=== PATIENT | male | born 1940 | race Caucasian/White ===

== ENCOUNTER 2018-12-01 19:54 | Inpatient (IN) | payer MEDICARE, OTHER ==
[~2018-12-01] VITALS: Ht 165.1 cm; Wt 67.1 kg
[~2018-12-01 19:54] MED LIST: LISI10TA6 PO; METF-371 PO; SIMV-8 PO
[2018-12-01] MEDS ORDERED: SODIUM CHLORIDE 0.9% 500 ML IVB ONE (20:14)
[2018-12-01 21:23] LABS: Eosinophils # (auto) 0.2 uL; Monocytes # (auto) 0.9 uL; Neutrophils # (auto) 5.5 uL; White Blood Cell 8.5 10^3/uL (4.4-10.8)
[2018-12-01 21:25] LABS: Basophils # (auto) 0 uL; Basophils % (auto) 0.3 % (0.0-2.0); Eosinophils % (auto) 2.6 % (0.0-7.0); Hematocrit 32.5 % (41.0-53.0); Lymphocytes # (auto) 1.9 uL; Lymphocytes % (auto) 22.1 % (10.0-50.0); Mean Corpuscular Hemoglobin 34.3 pg (28.0-32.0); Mean Corpuscular Volume 100.8 fL (80.0-100.0); Monocytes % (auto) 10.8 % (0.0-12.0); Neutrophils % (auto) 64.2 % (37.0-80.0); Platelet Count (auto) 160 10^3/uL (140-450); Red Blood Cells 3.22 10^6/uL (4.5-5.90); Red Cell Distribution Width 13.1 % (11.8-14.3)
[2018-12-01 21:34] LABS: Alanine Aminotransferase 25 U/L (16-61); Albumin 3.4 g/dL (3.4-5.0); Anion Gap 10 (5-15); Aspartate Aminotransferase 14 U/L (15-37); BUN/Creatinine Ratio 17.3; Blood Alcohol < 3.0 mg/dL (0-5); Blood Urea Nitrogen 47 mg/dL (7-18); Calcium 7.5 mg/dL (8.5-10.1); Carbon Dioxide 19 mmol/L (21-32); Chloride 115 mmol/L (98-107); GFR African American 29 mL/min; GFR Non-African American 24 mL/min; Glucose 113 mg/dL (74-106); Partial Thromboplastin Time 23.7 sec (23.64-32.05); Sodium 144 mmol/L (136-145)
[2018-12-01 21:39] LABS: Alkaline Phosphatase 42 U/L (45-117); Bilirubin, Total 0.4 mg/dL (0.2-1.0); Total Protein 6.4 g/dL (6.4-8.2)
[2018-12-01] MEDS ORDERED: NEOMYCIN-BACITRACIN-POLYM 15GM TOP OINT TOP STA (23:40)
[2018-12-01] MEDS ORDERED: TETANUS-DIPTH-ACEL PERTUSSIS 0.5ML SYRG IM ONE (23:45)
[2018-12-01] MEDS ORDERED: NEOMYCIN-BACITRACIN-POLYM UNITDOSE PKG TOP OINT TOP ONE (23:57)
[2018-12-02] MEDS ORDERED: NITROGLYCERIN 0.4 MG SL TAB SL PRN (00:45)
[2018-12-02] MEDS ORDERED: DEXTROSE (50%) 50ML SYRG IV PRN (00:45)
[2018-12-02] MEDS ORDERED: ONDANSETRON HCL 4 MG/2 ML VIAL IV PRN (00:45)
[2018-12-02] MEDS ORDERED: TEMAZEPAM 15 MG CAP PO PRN (00:45)
[2018-12-02] MEDS ORDERED: MORPHINE SULF INJ 2 MG/ML SYRINGE 1ML IV PRN (00:45)
[2018-12-02] MEDS ORDERED: ACETAMINOPHEN 325 MG TAB PO PRN (00:45)
[2018-12-02] MEDS: ACCU-CHEK COMFORT CURVE STRIP VI SCH ×4 (06:00→21:51)
[2018-12-02] MEDS: InsuLIN REG 1unit/0.01ml Soln (100units/ml) SC SCH ×4 (06:00→21:51)
[2018-12-02] MEDS: PANTOPRAZOLE 40 MG TAB PO SCH (10:18)
[2018-12-02 10:41] LABS: Urine Bacteria FEW /hpf (None Seen); Urine Blood Negative /uL (Negative); Urine Hyaline Cast MANY /lpf (0 - 2); Urine Mucus FEW (None Seen); Urine Specific Gravity 1.013 (1.001-1.035); Urine WBC 1 /hpf (0 - 3)
[2018-12-02] MEDS ORDERED: LORazepam 0.5 MG TAB PO PRN (13:15)
--- NOTE | 2018-12-02 14:33 | NUR ---
Telemetry admit from ER ANGELROBERT admitted to Telemetry unit after SBAR received. Patient oriented to ELBA Shelley RN, unit, room, bed, and unit policies regarding patient care and visiting hours. Patient now on continuous telemetry monitoring, tele box # 16 and telemetry reading on arrival to unit is Sinus Rhythm, [id number]. Patient placed on room air, weighed by bed scale and encouraged to call if they need something. All questions and concerns addressed, patient verbalized understanding.
[2018-12-02 14:45] VITALS: BP 111/64
[2018-12-02] MEDS ORDERED: LORA-655 PO (15:37)
[2018-12-02 17:00] VITALS: BP 111/64
--- NOTE | 2018-12-02 17:20 | NUR ---
Tele unit exchanged by [facility] staff to Tele 20.
--- NOTE | 2018-12-02 19:32 | NUR ---
received pt from day rn poc reviewed
[2018-12-02] MEDS: ATORVASTATIN 20 MG TAB PO SCH (21:46)
[2018-12-02 21:50] VITALS: BP 114/56
--- NOTE | 2018-12-03 00:25 | NUR ---
resting with eyes closed no c/o discomfort, call light within reach
[2018-12-03 04:03] VITALS: BP 101/55
[2018-12-03] MEDS: InsuLIN REG 1unit/0.01ml Soln (100units/ml) SC SCH ×3 (06:00→17:38)
[2018-12-03] MEDS: ACCU-CHEK COMFORT CURVE STRIP VI SCH ×3 (06:09→17:37)
[2018-12-03 06:30] LABS: Basophils # (auto) 0 uL; Basophils % (auto) 0.5 % (0.0-2.0); Eosinophils # (auto) 0.3 uL; Hematocrit 34.2 % (41.0-53.0); Hemoglobin 11.7 g/dL (13.5-17.5); Lymphocytes # (auto) 2.3 uL; Lymphocytes % (auto) 28.6 % (10.0-50.0); Mean Corpuscular Hemoglobin 33.7 pg (28.0-32.0); Mean Corpuscular Hgb Conc. 34.1 g/dL (32.0-36.0); Mean Corpuscular Volume 98.8 fL (80.0-100.0); Monocytes # (auto) 1.1 uL; Monocytes % (auto) 14.1 % (0.0-12.0); Neutrophils # (auto) 4.2 uL; Neutrophils % (auto) 52.8 % (37.0-80.0); Platelet Count (auto) 158 10^3/uL (140-450); Red Blood Cells 3.46 10^6/uL (4.5-5.90); Red Cell Distribution Width 13.1 % (11.8-14.3)
[2018-12-03 06:40] LABS: BUN/Creatinine Ratio 17.4; Calcium 8.5 mg/dL (8.5-10.1); Potassium 4.7 mmol/L (3.5-5.1)
--- NOTE | 2018-12-03 06:50 | NUR ---
REPORT GIVEN TO AM NURSE POC REVIEWED
--- NOTE | 2018-12-03 07:30 | NUR ---
Opening Shift Note RECEIVED REPORT FROM NOC RN. Assumed care of patient, awake and alert. No S/S of distress/SOB or pain. BED IN LOWEST, LOCKED POSITION WITH SIDERAILS UP x2. Instructed on POC and to call for assist PRN, will continue to monitor for changes Q1hr and PRN.
[2018-12-03 08:05] VITALS: BP 126/65
--- NOTE | 2018-12-03 08:05 | NUR ---
DR. Jere YU AT BEDSIDE.
[2018-12-03 09:00] VITALS: BP 126/65
[2018-12-03] MEDS: PANTOPRAZOLE 40 MG TAB PO SCH (09:55)
--- NOTE | 2018-12-03 10:20 | NUR ---
DR. SIMMS AT BEDSIDE.
--- NOTE | 2018-12-03 10:20 | NUR ---
EEG COMPLETED AT BEDSIDE. SILVIO FITCH AWARE.
[2018-12-03] MEDS: SODIUM BICARBONATE 50ML VIAL 50 ML in SOD CHL 0.45% 1,000 ML IV SCH (12:30)
--- NOTE | 2018-12-03 12:32 | NUR ---
WOUND CARE NOTE: Wound care in to see patient per wound care request regarding "Rt arm skin tear/abrasion" that are noted present on admission. Bedside nurse took photograph of patient's wound for reference. Patient is 78 years old male, with admitting diagnosis of Syncope, Htn. Patient is resting in bed in Rm 245A. He's awake, alert and fully oriented. Patient is in no stated pain at this time. Patient is ambulatory and self turn and reposition. His current Gm score is 18. Noted 1x 3cm open partial thickness skin tear to patient's R forearm. Wound is red with bright red periwound, scant serosanguineous drainage noted,no odor noted. On reports, patient had syncopal episode and fell to the floor sustaining Rt forearm skin tear. Cleansed patient's R forearm wound with NS, patted dry with sterile gauze, applied Thera honey gel and covered wound with Opti foam gentle dressing. No other wound noted, no pressure injury noted. Patient tolerated examination well. Repositioned patient for comfort. Bed in low position, call chavez on hand with all safety precautions in placed. No further wound care monitoring needed at this time. RECOMMENDATION: Q3Days/PRN dressing change to Rt. forearm wound per MD order, redistribute pressure points with pillows. Addendum: 12/03/18 at 1704 by Yasemin Rodriguez RN Amended: Links added.
[2018-12-03 13:00] VITALS: BP 116/63
[2018-12-03 17:00] VITALS: BP 101/60
--- NOTE | 2018-12-03 19:30 | NUR ---
Opening Shift Note Assumed care of patient, awake and alert x4. Family member noted at the bedside. Patient denies pain or shortness of breath at this time. Instructed on plan of care and to call for assistance as needed. Bed is locked in lowest position, side rails x 2 are up, and call light is within reach.
[2018-12-03 21:00] VITALS: BP_SYST 104; BP_SYST 147; BP_DIAS 63; BP_DIAS 79
[2018-12-03] MEDS: ATORVASTATIN 20 MG TAB PO SCH (22:18)
[2018-12-04] MEDS: ACCU-CHEK COMFORT CURVE STRIP VI SCH ×2 (00:11→06:03)
[2018-12-04] MEDS: SODIUM BICARBONATE 50ML VIAL 50 ML in SOD CHL 0.45% 1,000 ML IV SCH ×2 (01:23→06:48)
--- NOTE | 2018-12-04 03:47 | NUR ---
IV REMOVAL/IV INSERTION IV removal IV DC'd with clean sterile technique, catheter fully intact. Pressure dressing applied to site. Patient tolerated well. IV INSERTION IV access obtained, via clean sterile technique by inserting 22 gauge catheter at left hand after 3 attempts. IV secured properly. No trauma to site. Patient tolerated well.
[2018-12-04 04:30] VITALS: BP 126/59
[2018-12-04] MEDS: InsuLIN REG 1unit/0.01ml Soln (100units/ml) SC SCH ×2 (06:00)
[2018-12-04 07:14] LABS: Albumin 3.5 g/dL (3.4-5.0); Calcium 8.5 mg/dL (8.5-10.1); Potassium 4.1 mmol/L (3.5-5.1)
[2018-12-04 07:17] LABS: BUN/Creatinine Ratio 13.8; Bilirubin, Total 0.9 mg/dL (0.2-1.0); Total Protein 6.9 g/dL (6.4-8.2)
[2018-12-04 08:00] VITALS: BP 133/70
[2018-12-04 08:10] VITALS: BP 133/70
[2018-12-04] MEDS: PANTOPRAZOLE 40 MG TAB PO SCH (09:36)
[2018-12-04] MEDS ORDERED: SODIUM PHOSPHATES 20 MEQ in SODIUM CHL 0.9% 100 ML IV ONE (10:15)
[2018-12-04 12:13] VITALS: BP 128/68
--- NOTE | 2018-12-04 13:53 | NUR ---
Discharge instructions given as ordered. Encourage to follow up with PMD as instructed. All questions and concerns addressed. Patient verbalized understanding. Medication reconciliation form completed and copy given to patient. IV removed with catheter intact, pressure dressing applied. Telemetry unit returned to [facility]. Patient taken to vehicle via wheelchair with all personal belongings, accompanied by staff and family member. No distress noted at time of departure.
[2018-12-05 10:47] LABS: Folate (Folic Acid) 9.88 ng/mL (5.38-24)
== END 2018-12-04 13:46 | disposition home or self-care (01) | DRG 314 ==
LOC: EDBD 19:54 → ER 19:56 → TELE 19:57 → TELE-EAST 12-02 14:59
PROVIDERS: ADMIT Nurse Practitioner; ATTEND Family Medicine
DX: I95.9 Hypotension, unspecified (principal); N17.0 Acute kidney failure with tubular necrosis; I13.0 Hypertensive heart and chronic kidney disease with heart failure and stage 1 through stage 4 chronic kidney disease, or unspecified chronic kidney disease; I50.22 Chronic systolic (congestive) heart failure; N18.4 Chronic kidney disease, stage 4 (severe); E87.2 Acidosis; E86.0 Dehydration; W18.39XA Other fall on same level, initial encounter; S50.811A Abrasion of right forearm, initial encounter; I25.10 Atherosclerotic heart disease of native coronary artery without angina pectoris; E78.5 Hyperlipidemia, unspecified; F12.90 Cannabis use, unspecified, uncomplicated; D53.9 Nutritional anemia, unspecified; E83.39 Other disorders of phosphorus metabolism; E11.22 Type 2 diabetes mellitus with diabetic chronic kidney disease; E78.00 Pure hypercholesterolemia, unspecified; Y93.89 Activity, other specified; Y92.89 Other specified places as the place of occurrence of the external cause; Y99.8 Other external cause status; Z95.5 Presence of coronary angioplasty implant and graft; Z90.89 Acquired absence of other organs; Z80.9 Family history of malignant neoplasm, unspecified; Z91.19 Patient's noncompliance with other medical treatment and regimen; Z23 Encounter for immunization
CPT/HCPCS: 36415; 70450; 70551; 71045; 76775; 80048; 80053; 80320; 81001; 82306; 82607; 82746; 82962; 83735; 83970; 84100; 84443; 84484; 85025; 85379; 85610; 85730; 90471; 90715; 93005; 93306; 93886; 93970; 95819; 96360; G0378